=== PATIENT | female | born 1950 | race Caucasian/White ===

== ENCOUNTER → 2016-10-06 | Outpatient (CLI) | payer OTHER, MEDICARE ==
--- NOTE | 2016-10-06 17:44 | MRI ---
Indication: Ankle pain. Exam: MRI right ankle without contrast. Technique: Routine multiplanar multisequence imaging was performed through the right ankle without co ntrast. Findings: The ankle mortise is intact. No fracture or dislocation is seen. There are subchondral cyst ic changes along the body of the talus superiorly , adjacent to the subtalar joint , which probably r epresent cysts or geodes . The ankle mortise is intact. There is moderate stranding and edema in the subcutaneous soft tissues along the lower leg and extending inferiorly around the ankle and into the dorsum of the foot with no focal fluid collection or mass. The surrounding tendons and ligaments are intact. The surrounding tendons and ligaments appear intact and in good position. There is some mild subchondral increased signal along the 2nd cuneiform bone anteriorly and distally . The tarsal bones are otherwise in good position and normal signal intensity. Impression: Moderate cellulitis and /or edema around the lower leg and extending inferiorly around the ankle and into the dorsum of the foot with no focal fluid collection seen. Questionable subchondral cysts or geodes along the calcaneus , adjacent to the subtalar joint . Small focus of abnormal signal along the distal 2nd cuneiform bone with which could represent a subch ondral cyst or small focus of chronic osteonecrosis with no acute bony abnormality seen. Reported By:
== END | disposition home or self-care (01) | DRG 556 ==
LOC: RAD 14:35
PROVIDERS: ATTEND Nurse Practitioner Family
DX: M25.571 Pain in right ankle and joints of right foot (principal); M79.1 Myalgia; L03.115 Cellulitis of right lower limb
CPT/HCPCS: 73721